=== PATIENT | male | born 1960 | race Caucasian/White ===

== ENCOUNTER 2017-07-30 06:45 | Day surgery (SDC) | payer BC ==
[2017-07-30] MEDS ORDERED: FENTAnyl 50 MCG/ML VIAL (09:50)
[2017-07-30] MEDS ORDERED: MIDAZOLAM 1 MG/ML 2 ML INJ ×2 (09:50)
== END 2017-07-30 12:01 | disposition home or self-care (01) ==
LOC: GIL 06:45
DX: Z12.11 Encounter for screening for malignant neoplasm of colon (principal); K31.7 Polyp of stomach and duodenum; K29.60 Other gastritis without bleeding; K57.90 Diverticulosis of intestine, part unspecified, without perforation or abscess without bleeding; K64.8 Other hemorrhoids; I10 Essential (primary) hypertension; E11.9 Type 2 diabetes mellitus without complications
CPT/HCPCS: 43239